=== PATIENT | female | born 1955 | race Caucasian/White ===

== ENCOUNTER 2016-11-12 19:31 | Emergency (ER) | payer BC ==
[~2016-11-12] VITALS: Ht 167.6 cm; Wt 72.6 kg
[~2016-11-12 19:31] MED LIST: BUPR-51 PO; ESOM40CA PO; HYDR10TA12 GT; MONT10TA22 PO; SULF1TAB48 PO; ZOLP10TA6 PO; ZOLP5TAB7 PO
--- NOTE | 2016-11-12 19:46 | NUR ---
to bed 2 ambulatory c/o RUQ abdominal pain with n/v x2 days. pt aaox4 no acute distress noted, resp even and unlabored. urine sample collected and sent to lab. pending er md eaton.
[2016-11-12] MEDS ORDERED: ONDANSETRON HCL/PF 4 MG/2 ML VIAL ONE (19:58)
[2016-11-12] MEDS ORDERED: IV SET PRIMARY 1 EA INFUS.SET MC ONE (19:59)
[2016-11-12] MEDS ORDERED: IV NS 0.9% 1,000 ML ONE (19:59)
[2016-11-12] MEDS ORDERED: ONDANSETRON HCL/PF 4 MG/2 ML VIAL IVP ONE (20:00)
[2016-11-12] MEDS ORDERED: IV NS 0.9% 1,000 ML BAG IV ONE (20:00)
[2016-11-12 20:03] LABS: APPEARANCE,URINE Clear (CLEAR); BILIRUBIN,URINE Negative (NEGATIVE); BLOOD, URINE Negative Ery/uL (NEGATIVE); COLOR,URINE Yellow (YELLOW); KETONES,URINE Negative (NEGATIVE); LEUKOCYTE ESTERASE ,URINE Trace (NEGATIVE); NITRITE, URINE Negative (NEGATIVE); PH,URINE 5.5 (5.0-8.0); PROTEIN,URINE Negative (NEGATIVE); UGLUCOSE Negative (NEGATIVE); UROBILINOGEN,URINE 0.2 EU/dL (0.2)
[2016-11-12 20:04] LABS: BASOPHILS % (AUTO) 0.4 % (0.0-2.0); EOSINOPHILS # (AUTO) 0.1 /CMM (0.0-0.7); EOSINOPHILS % (AUTO) 1.5 % (0.0-6.0); HEMATOCRIT 41 % (33-45); HEMOGLOBIN 13.8 g/dL (11.5-14.8); LYMPHOCYTES # (AUTO) 2.5 /CMM (0.8-4.8); LYMPHOCYTES % (AUTO) 33.6 % (20.0-44.0); MEAN CORPUSCULAR HEMOGLOBIN 30 PG (26.0-33.0); MEAN CORPUSCULAR HGB CONC 33 g/dl (31.0-36.0); MEAN CORPUSCULAR VOLUME 89 fL (82-100); MONOCYTES # (AUTO) 0.6 /CMM (0.1-1.30); MONOCYTES % (AUTO) 8.3 % (2.0-12.0); NEUTROPHILS # (AUTO) 4.3 /CMM (1.8-8.9); NEUTROPHILS % (AUTO) 56.2 % (43.0-81.0); PLATELET COUNT (AUTO) 283 /CMM (150-450); RDW COEFFICIENT OF VARIATION 12.9 (11.5-15.0); RED BLOOD CELL COUNT(AUTO) 4.62 MIL/uL (4.0-5.2); WHITE BLOOD COUNT (AUTO) 7.5 K/uL (4.3-11.0)
[2016-11-12 20:15] LABS: CREATININE 0.8 mg/dL (0.6-1.3); POTASSIUM 3.5 mmol/L (3.5-5.1)
[2016-11-12 20:21] LABS: ALBUMIN 3.8 g/dL (3.4-5.0); BILIRUBIN,DIRECT 0.1 mg/dL (0.0-0.2); BILIRUBIN,TOTAL 0.6 mg/dL (0.2-1.0); TOTAL PROTEIN, SERUM 7.1 g/dL (6.4-8.2)
[2016-11-12 20:32] LABS: CALCIUM, SERUM 8.8 mg/dL (8.5-10.1)
[2016-11-12 20:33] LABS: ADD URINE CULTURE NO; BACTERIA,URINE None seen /HPF (None Seen); RBC,URINE 0-2 /HPF (0-2); SQUAMOUS EPITHELIAL CELL,UR Few /HPF (None Seen)
[2016-11-12] MEDS ORDERED: IV NS 0.9% 0 ML IV ONE (20:36)
[2016-11-12] MEDS ORDERED: IOHEXOL-300 100 ML VIAL IV ONE (20:36)
[2016-11-12] MEDS ORDERED: CT SWABBABLE VALVE TRANS SET 1 EA INFUS.SET MC ONE (20:36)
[2016-11-12] MEDS ORDERED: BARIUM SULFATE SUSP 450 ML BOTTLE PO ONE (20:39)
[2016-11-12] MEDS ORDERED: CIPROFLOXACIN IV RTU 400 MG in PREMIX 1 EA IV SCH (21:00)
[2016-11-12] MEDS ORDERED: IV SET PRIMARY PUMP SET 1 EA INFUS.SET MC ONE (21:43)
[2016-11-12] MEDS ORDERED: CIPROFLOXACIN IV RTU 200 ML IV ONE (21:43)
--- NOTE | 2016-11-12 22:51 | NUR ---
pt back from radiology. pending ct abd/pelvis result.
[2016-11-12] MEDS ORDERED: METOCLOPRAMIDE HCL 10 MG/2 ML VIAL ONE (23:08)
--- NOTE | 2016-11-12 23:10 | NUR ---
pt c/o nausea, er md made aware with orders recived. rn to medicate pt.
[2016-11-12] MEDS ORDERED: METOCLOPRAMIDE HCL 10 MG/2 ML VIAL IV ONE (23:30)
--- NOTE | 2016-11-13 00:01 | NUR ---
pt verbalize relief of nausea. er md made aware. awaiting ct abd/pelvis result.
[2016-11-13 00:36] VITALS: BP 127/67
--- NOTE | 2016-11-13 00:36 | NUR ---
IV removed. Catheter intact and site benign. Pressure and 4x4 applied to site. No bleeding noted. Patient discharged to home in stable condition. Written and verbal after care instructions given. Patient verbalizes understanding of instruction. ambulatory with a steady gait noted. pt aaox4 no acute distress noted, resp even and unlabored.
== END 2016-11-13 00:46 | disposition home or self-care (01) ==
LOC: ER 19:35
DX: N39.0 Urinary tract infection, site not specified (principal); K58.0 Irritable bowel syndrome with diarrhea
CPT/HCPCS: 36415; 74176; 80048; 80076; 81001; 83690; 85025; 96361; 96365; 96375; 99285; A4216; A4606; J0744 ×2; J2405; J2765; J7030; Z7610; 81000-TC; J7050; Q9967

== ENCOUNTER 2017-03-28 10:45 | Emergency (ER) | payer BC ==
[~2017-03-28] VITALS: Ht 167.6 cm; Wt 70.8 kg
[2017-03-28] MEDS ORDERED: ACETAMINOPHEN ES 500 MG TABLET ONE (10:58)
[2017-03-28] MEDS ORDERED: ACETAMINOPHEN ES 500 MG TABLET PO ONE (11:00)
--- NOTE | 2017-03-28 11:07 | NUR ---
ASSUME PT CARE. C/O L KNEE PAIN S/P FALL LAST TUESDAY. SUSTAINED A R FIBULAR FRACTURE. CONCERNED ABOUT HER L KNEE. SEEN BY HOWARD.
--- NOTE | 2017-03-28 12:15 | NUR ---
CASANDRA WRAP APPLIED. PT PROVIDED W/ A WALKER. Patient discharged to home in stable condition. Written and verbal after care instructions given. Patient verbalizes understanding of instruction.
[2017-03-28 12:16] VITALS: BP 122/74
== END 2017-03-28 12:17 | disposition home or self-care (01) ==
LOC: ER 10:48
DX: S83.92XA Sprain of unspecified site of left knee, initial encounter (principal); K58.9 Irritable bowel syndrome, unspecified; Z98.890 Other specified postprocedural states; W18.39XA Other fall on same level, initial encounter; Y93.89 Activity, other specified; Y92.89 Other specified places as the place of occurrence of the external cause; Y99.9 Unspecified external cause status
CPT/HCPCS: 73562; A4606; Z7610